=== PATIENT | female | born 1985 | race Caucasian/White ===

== ENCOUNTER 2017-05-20 18:14 | Observation (INO) | payer OTHER ==
[~2017-05-20] VITALS: Ht 162.6 cm; Wt 118.8 kg
[2017-05-20] MEDS ORDERED: ONDANSETRON HCL INJ 2 MG/ML VIAL IV STA (18:39)
[2017-05-20] MEDS ORDERED: MORPHINE SULFATE 4 MG/ML SYR IV STA (18:39)
[2017-05-20] MEDS ORDERED: SODIUM CHLORIDE 0.9% 1000ML 1,000 ML IV STA (18:39)
[2017-05-20] MEDS ORDERED: CLINDAMYCIN PHOS 900MG/ D5W 50 50 ML IV STA (18:39)
[2017-05-20] MEDS ORDERED: ACETAMINOPHEN 325 MG TAB PO STA (18:39)
[2017-05-20] MEDS ORDERED: IBUPROFEN 400 MG TAB PO STA (18:39)
[2017-05-20] MEDS ORDERED: ACETAMINOPHEN 325 MG TAB PO ONE (18:45)
[2017-05-20 19:38] LABS: BASOPHILS % 0.3 % (0.0-1.0); EOSINOPHILS # (AUTO) 0.1 (0.0-0.4); EOSINOPHILS % 0.7 % (0.0-6.0); HEMATOCRIT 37.6 % (34.2-44.1); HEMOGLOBIN 12.7 g/dL (12.0-16.0); LYMPHOCYTES # (AUTO) 2.4 (1.0-3.2); LYMPHOCYTES % 15.2 % (18.0-39.1); MEAN CORPUSCULAR HEMOGLOBIN 31.8 pg (28-32); MEAN CORPUSCULAR HGB CONC 33.8 g/dL (31-35); MONOCYTES # (AUTO) 1.2 (0.2-0.8); MONOCYTES % 7.5 % (4.4-11.3); NEUTROPHILS # (AUTO) 11.8 (2.1-6.9); NEUTROPHILS % 75.8 % (38.7-80.0); PLATELET COUNT 246 x10e3/uL (140-360); RED CELL DISTRIBUTION WIDTH 13.3 % (11.7-14.4)
[2017-05-20 19:56] LABS: ALANINE AMINOTRANSFERASE 22 IU/L (0-55); ALBUMIN 3.9 g/dL (3.5-5.0); ALBUMIN/GLOBULIN RATIO 1.1 (0.8-2.0); ALKALINE PHOSPHATASE 95 IU/L (40-150); ANION GAP 13.7 mmol/L (8-16); BLOOD UREA NITROGEN 9 mg/dL (7-26); BUN/CREATININE RATIO 12 (6-25); CALCIUM 8.9 mg/dL (8.4-10.2); CARBON DIOXIDE 26 mmol/L (22-29); CHLORIDE 103 mmol/L (98-107); CREATININE, SERUM 0.75 mg/dL (0.57-1.11); EST GLOMERULAR FILTRATION RATE > 60 ML/MIN (60-); GLUCOSE 105 mg/dL (74-118); POTASSIUM 3.7 mmol/L (3.5-5.1); SODIUM 139 mmol/L (136-145)
[2017-05-20] MEDS ORDERED: HYDROMORPHONE 1MG/1ML INJ IV PRN (20:30)
[2017-05-20] MEDS ORDERED: ONDANSETRON HCL INJ 2 MG/ML VIAL IV PRN (20:30)
[2017-05-20] MEDS ORDERED: ACETAMINOPHEN 325 MG TAB PO PRN (20:30)
[2017-05-20] MEDS: HYDROMORPHONE 2MG/ML INJ IV PRN (23:22)
[2017-05-20] MEDS: CEFEPIME HCL 1 GM VIAL IV SCH (23:22)
[2017-05-20] MEDS: CLINDAMYCIN PHOS 900MG/ D5W 50 50 ML IV SCH (23:22)
[2017-05-20 23:24] LABS: BILIRUBIN,URINE NEGATIVE (NEGATIVE); KETONES,URINE NEGATIVE (NEGATIVE); LEUKOCYTE ESTERASE ,URINE NEGATIVE (NEGATIVE); NITRITE,URINE NEGATIVE (NEGATIVE); URINE UROBILINOGEN 0.2 mg/dL (0.2 - 1)
[2017-05-20 23:26] LABS: CLARITY,URINE SL CLOUDY (CLEAR); COLOR,URINE YELLOW (YELLOW); PROTEIN,URINE DIPSTICK 1+ (NEGATIVE)
[2017-05-20 23:42] LABS: BACTERIA,URINE MODERATE /HPF; EPITHELIAL CELLS,URINE FEW /LPF
[2017-05-21] VITALS (9 sets, daily range): BP systolic 109–145; BP diastolic 58–101
[2017-05-21] MEDS: SODIUM CHLORIDE 0.9% 1000ML 1,000 ML IV SCH ×5 (01:49→22:28)
[2017-05-21] MEDS: HYDROMORPHONE 2MG/ML INJ IV PRN ×3 (02:43→22:05)
[2017-05-21] MEDS: CEFEPIME HCL 1 GM VIAL IV SCH ×3 (05:36→22:28)
[2017-05-21] MEDS: CLINDAMYCIN PHOS 900MG/ D5W 50 50 ML IV SCH ×3 (05:57→22:28)
[2017-05-21 06:39] LABS: BASOPHILS % 0.2 % (0.0-1.0); EOSINOPHILS # (AUTO) 0.2 (0.0-0.4); EOSINOPHILS % 1.5 % (0.0-6.0); HEMATOCRIT 34.1 % (34.2-44.1); HEMOGLOBIN 11.2 g/dL (12.0-16.0); LYMPHOCYTES # (AUTO) 3.5 (1.0-3.2); LYMPHOCYTES % 24.2 % (18.0-39.1); MEAN CORPUSCULAR HEMOGLOBIN 31.2 pg (28-32); MEAN CORPUSCULAR HGB CONC 32.8 g/dL (31-35); MONOCYTES # (AUTO) 1.3 (0.2-0.8); MONOCYTES % 8.9 % (4.4-11.3); NEUTROPHILS # (AUTO) 9.3 (2.1-6.9); NEUTROPHILS % 64.8 % (38.7-80.0); PLATELET COUNT 204 x10e3/uL (140-360); RED BLOOD COUNT 3.59 x10e6/uL (3.6-5.1); RED CELL DISTRIBUTION WIDTH 13.3 % (11.7-14.4)
[2017-05-21 07:06] LABS: ALANINE AMINOTRANSFERASE 21 IU/L (0-55); ALBUMIN 3.1 g/dL (3.5-5.0); ALKALINE PHOSPHATASE 87 IU/L (40-150); ANION GAP 12.6 mmol/L (8-16); BLOOD UREA NITROGEN 8 mg/dL (7-26); BUN/CREATININE RATIO 12 (6-25); CALCIUM 8.6 mg/dL (8.4-10.2); CARBON DIOXIDE 26 mmol/L (22-29); CHLORIDE 105 mmol/L (98-107); CREATININE, SERUM 0.69 mg/dL (0.57-1.11); EST GLOMERULAR FILTRATION RATE > 60 ML/MIN (60-); GLUCOSE 108 mg/dL (74-118); POTASSIUM 3.6 mmol/L (3.5-5.1); SODIUM 140 mmol/L (136-145)
--- NOTE | 2017-05-21 07:14 | Pre Op History & Physical ---
CHIEF COMPLAINT: Perianal pain. HISTORY OF PRESENT ILLNESS: The patient is a 31-year-old female who presents with complaints of pain and swelling in the perianal area. She says she has had it about 3 to 5 days. She has had some pain in this area for a couple of months, however. She came to the emergency room where she was noted to have findings suggestive of perirectal abscess and was admitted to the hospital. PAST MEDICAL HISTORY: The patient denies any chronic medical problems. ALLERGIES: THERE ARE NO KNOWN ALLERGIES. MEDICATIONS: No current medications. PAST SURGICAL HISTORY: Only previous surgery was previous back surgery times 2. FAMILY HISTORY: Noncontributory. SOCIAL HISTORY: Patient smokes cigarettes, a quarter-pack per day. Does not drink alcohol. REVIEW OF SYSTEMS: As stated above. She has had no fever. She has no other symptoms referable to any other system. PHYSICAL EXAMINATION GENERAL: The patient is awake and alert, in no distress. VITAL SIGNS: Normal. She has been afebrile. HEENT: No scleral icterus. NECK: No masses. CHEST: Equal breath sounds are clear bilaterally. CARDIOVASCULAR: Regular rate and rhythm with no murmur. ABDOMEN: Soft. RECTAL EXAM: There is swelling posteriorly with some drainage noted with a large external hemorrhoid associated with this area. There is mild erythema. EXTREMITIES: No edema. NEURO: Grossly intact. LAB TESTS: White blood cell count 15.7 Hemoglobin and hematocrit are normal. Chemistries are essentially normal. ASSESSMENT: This is a 31-year-old female with a perirectal abscess, which has a small amount of drainage now, but requires better drainage. She is now admitted to the hospital. PLAN: Incision and drainage of the abscess to be done in the operating room today. Procedure was explained to the patient. She is aware that a fistula may be identified, and fistulotomy may be necessary. Job#: [id number]
[2017-05-21] MEDS ORDERED: ONDANSETRON HCL INJ 2 MG/ML VIAL IV PRN (15:45)
[2017-05-21] MEDS: HYDROCODONE/APAP 7.5MG-325MG 1 EA TAB PO PRN (16:34)
--- NOTE | 2017-05-21 17:18 | Operative Report ---
DATE OF PROCEDURE: May 21, 2017 PREOPERATIVE DIAGNOSIS: Perirectal abscess, enlarged inflamed external hemorrhoid. POSTOPERATIVE DIAGNOSIS: Perirectal abscess, enlarged inflamed external hemorrhoid. PROCEDURE PERFORMED: Incision and drainage of perirectal abscess with excision of external hemorrhoid. VENDOR REPRESENTATIVES: None. ANESTHESIA: General. INDICATIONS AND FINDINGS: Patient is a 31-year-old female admitted to the hospital with complaints of perianal pain. Workup revealed abscess in this area. Surgery was an abscess posterior to the anus which was just adjacent to the anal verge. There was adjacent to this an enlarged external hemorrhoid which was edematous and inflamed which was excised. TECHNIQUE: After adequate general anesthesia with patient lithotomy position, the perianal area was prepped and draped in sterile fashion with Betadine solution. Incision made over the area of swelling just posterior to the anus and the abscess cavity entered. Purulent fluid drained and sample taken for culture and sensitivity. The incision was extended to provide adequate drainage. Adjacent to this there was an enlarged, inflamed edematous external hemorrhoid and this was excised and wound left open. Hemostasis achieved with electrocautery. Perianal skin was infiltrated with 1/2 percent Marcaine. Hemostasis seen to be adequate. The abscess area was packed open with 1/2 inch iodoform gauze and sterile dressing was applied. Patient tolerated procedure well. Estimated blood loss was 10 mL. There were no complications. All counts were correct. Patient was taken to the recovery room in satisfactory condition. Job#: [id number]
[2017-05-21] MEDS ORDERED: FENTANYL CITRATE/PF 100MCG/2 ML INJ ONE (18:18)
[2017-05-21] MEDS ORDERED: MIDAZOLAM HCL 2 MG/2 ML VIAL ONE (18:18)
[2017-05-21] MEDS ORDERED: ONDANSETRON HCL INJ 2 MG/ML VIAL ONE (19:19)
[2017-05-21] MEDS ORDERED: PROPOFOL IV EMULSION 10 MG/ML 20 ML VIAL ONE (19:19)
[2017-05-21] MEDS ORDERED: LIDOCAINE HCL 2% LOCAL INJ 5 ML SDV VIAL INJ ONE (19:19)
[2017-05-21] MEDS ORDERED: SEVOFLURANE INHAL SOLN 250 ML PEN BTL ONE (19:19)
[2017-05-22 01:27] VITALS: BP 100/55
[2017-05-22] MEDS: HYDROMORPHONE 2MG/ML INJ IV PRN ×3 (02:27→10:02)
[2017-05-22 03:56] VITALS: BP 100/65
[2017-05-22 04:00] VITALS: BP 149/82
[2017-05-22] MEDS: CEFEPIME HCL 1 GM VIAL IV SCH (05:44)
[2017-05-22] MEDS: CLINDAMYCIN PHOS 900MG/ D5W 50 50 ML IV SCH (05:44)
[2017-05-22 07:00] VITALS: BP 123/76
[2017-05-22 08:19] VITALS: BP 123/76
[2017-05-22] MEDS: HYDROCODONE/APAP 7.5MG-325MG 1 EA TAB PO PRN (09:03)
[2017-05-22] MEDS ORDERED: TYLENOL # 31 EA PO (09:21)
[2017-05-22] MEDS ORDERED: AUGMENTIN 875-1 EACH PO (09:23)
== END 2017-05-22 11:04 | disposition home or self-care (01) ==
LOC: ER 18:14 → ERHOLD 22:34 → IMCU 05-21 00:44
PROVIDERS: ADMIT Surgery; ATTEND Surgery
DX: K61.1 Rectal abscess (principal); K64.4 Residual hemorrhoidal skin tags; F17.210 Nicotine dependence, cigarettes, uncomplicated
CPT/HCPCS: 36415 ×2; 46040; 46999; 80053 ×2; 81001; 81025; 85025 ×2; 87071; 87075; 87086; 87186; 87205; 88304; 96360; 96365; 96374; 96375; 99284; G0378 ×3; J0692 ×3; J1170 ×3; J2001; J2250; J2405 ×2; J7030 ×3